=== PATIENT | female | born 2005 | race African-American/Black ===

== ENCOUNTER 2025-07-21 15:22 | Observation (INO) ==
[2025-07-21 16:10] LABS: Hematocrit (blood only) 30.9 % (37.0-47.0); Hemoglobin 9.7 g/dL (12.0-16.0); Immature Granulocytes # (auto) 0.04 K/uL (0.01-0.20); Immature Granulocytes % (auto) 0.4 %; Mean Corpuscular Hemoglobin 22.1 pg (25.0-34.0); Mean Corpuscular Volume 70.5 fL (80.0-100.0); Platelet Count 315 K/uL (130-400); RDW Standard Deviation 50.8 fL (36.4-46.3); Red Blood Count 4.38 M/uL (4.20-5.40); White Blood Count 11.19 K/ul (4.8-10.8)
--- NOTE | 2025-07-21 16:11 | Emergency Department Note ---
Impression & Plan Nausea & vomiting, Abdominal cramping ED Provider Note NAME: CHATA FAGAN AGE: 20 SEX: F : 2005 ARRIVES VIA: Walk-In INFORMANT: Patient, ED PROVIDER(S): Phillip Wheeler DO CHIEF COMPLAINT: Abdominal pain HPI: The patient is a 20-year-old female who presented to the emergency department for an evaluation of abdominal pain nausea vomiting and pelvic cramping. The patient is currently on her menses. She states that she has had similar symptoms in the past with her menses. She has not had it in a long time but over the last 3 days she has been experiencing nausea vomiting and abdominal cramping. The patient denies having any fever. The patient denies having any dysuria. She states that she has been having symptoms over the last 3 days. The patient's been taking [id number] medication with only minimal relief of her symptoms. ROS: See above HPI for pertinent positives & negatives. A total of 10 systems reviewed and were otherwise negative. PAST MEDICAL HISTORY: See Below PAST SURGICAL HISTORY: See Below FAMILY HISTORY: See Below SOCIAL HISTORY: See Below HOME MEDICATIONS: See Below ALLERGIES: See Below VITALS: See Below PHYSICAL EXAMINATION: GENERAL: Patient is awake alert in no acute distress patient is resting comfortably and showing no signs of anxiety EYES: The conjunctivae are clear. The pupils are round and reactive. EARS, NOSE, MOUTH AND THROAT: The nose is without any evidence of any deformity. NECK: The neck is nontender and supple. RESPIRATORY: Normal respiratory effort is noted there is no evidence of wheezing rhonchi or rales CARDIOVASCULAR: Regular rate and rhythm noted there no murmurs rubs or gallops normal S1 normal S2. GASTROINTESTINAL: The abdomen is soft. Abdomen is nontender. MUSCULOSKELETAL/EXTREMITIES: There is no evidence of gross deformity full range of motion is noted in the hips and shoulders. SKIN: There is no obvious evidence of any rash. There are no petechiae, pallor or cyanosis noted. NEUROLOGIC: Patient is awake alert and oriented x3 MEDICAL DECISION MAKING: The patient is a 20-year-old female who presented to the emergency department for an evaluation of abdominal pain. The patient was having abdominal cramping with nausea and vomiting. The patient did not have a physical exam consistent with an acute surgical abdomen. The patient was treated with medication in the emergency department for pain as well as vomiting. The patient was reevaluated multiple times. She was treated with IV fluids. On reevaluation she was resting comfortably. She was encouraged to continue all medications as prescribed. I do not feel the patient requires a CAT scan of the abdomen and pelvis at this time. I did discuss this with the patient. She was advised to continue to follow-up with S for reevaluation but return immediately if she develop any signs of worsening pain or rigid abdomen or fever or if the need arises. After the patient was discharged in discussion with her mother the patient decided that she was not feeling any better and would like to be evaluated by the hospitalist for inpatient management. I discussed her condition with the on-call [facility] hospitalist. Triage Nursing notes reviewed. Prior medical records reviewed Vital Signs: reviewed and remarkable for no significant abnormalities Differential diagnosis: Etiologies such as appendicitis, diverticulitis, obstruction, inflammatory bowel disease, renal colic, PUD, biliary pathology, pancreatitis, mesenteric ischemia, aortic pathology, infections, genitourinary, UTI, perforated viscus, as well as others were entertained. ER treatment provided: See below Diagnostics interpreted by me: ECG: none Cardiac Monitoring: An order was placed for continuous cardiac monitoring. The monitor shows a rate of 62 bpm with sinus rhythm. Laboratory studies: As stated above and show below. Imaging studies: See below. Radiographic imaging was reviewed by myself Consultation(s): I discussed the case with Dr. Leahy who is on-call for the [facility] hospitalist group. Past Med/Surg History Problem List (Updated 07/21/25 @ 19:53 by Phillip Wheeler DO) Abdominal cramping (Acute) Nausea & vomiting (Acute) Otitis externa Surgical History No history of previous surgery Family History Family/Other Asthma cousin Other No family history of adverse response to anesthesia No family history of bleeding disorder Social History Smoking Status: Never smoker Do You Dip or Chew Tobacco: No; Hx Alcohol Use: No Hx Substance Use: No Preferred Language: Cook Islander marital status: Single current occupational status: student current occupation: Undergrad student Feels Safe at Home: Yes Allergies Allergies Allergy/AdvReac Type Severity Reaction Status Date / Time No Known Allergies Allergy Verified 07/21/25 17:10 Home Meds Home Medications Medication Instructions Recorded Confirmed acetaminophen 500 mg tablet 1,000 mg PO DIRECTED PRN 07/21/25 07/21/25 (Tylenol Extra Strength) PAIN/FEVER ibuprofen 200 mg tablet (Advil) 600 mg PO DIRECTED PRN 07/21/25 07/21/25 PAIN/FEVER Results & Data (ED) Vital Signs Vital Signs - 24 hr 07/21/25 15:26 07/21/25 15:48 07/21/25 17:38 Temperature 36.6 C Temperature Source Skin Pulse Rate 59 L 58 L Pulse Rate [Left Finger] 95 H Respiratory Rate 16 16 Respiratory Effort / Characteristics Non-Labored Spontaneous Respiratory Depth Normal Blood Pressure 135/91 Blood Pressure [Right Arm] 125/81 Blood Pressure Mean 105 Blood Pressure Mean [Right Arm] 95 Blood Pressure Position [Right Arm] Lying Pulse Oximetry 100 100 Oxygen Delivery Method Room Air Sepsis Recent Fever Within 48 Hours No Sepsis New/Unexplained Change in Mental Status N/A Sepsis Action Taken by Nursing No Action Required 07/21/25 18:59 07/21/25 19:33 07/21/25 20:37 Temperature Temperature Source Pulse Rate 59 L Pulse Rate [Left Finger] 62 54 L Respiratory Rate 18 18 Respiratory Effort / Characteristics Respiratory Depth Blood Pressure Blood Pressure [Right Arm] 114/70 127/81 Blood Pressure Mean Blood Pressure Mean [Right Arm] 84 96 Blood Pressure Position [Right Arm] Lying Lying Pulse Oximetry 98 97 Oxygen Delivery Method Room Air Room Air Sepsis Recent Fever Within 48 Hours Sepsis New/Unexplained Change in Mental Status Sepsis Action Taken by Fdc Medications Current Medication List: was personally reviewed by me Laboratory Data Attestation: I reviewed the patient's lab results. 07/21/25 15:39 07/21/25 15:39 Lab Results 07/21/25 07/21/25 Range/Units 15:39 19:25 WBC 11.19 H (4.8-10.8) K/ul RBC 4.38 (4.20-5.40) M/uL Hgb 9.7 L (12.0-16.0) g/dL Hct 30.9 L (37.0-47.0) % MCV 70.5 L (80.0-100.0) fL MCH 22.1 L (25.0-34.0) pg MCHC 31.4 L (32.0-36.0) g/dL RDW Std Deviation 50.8 H (36.4-46.3) fL RDW Coeff of Janet 20.3 H (11.5-14.5) % Plt Count 315 (130-400) K/uL MPV 10.9 (9.4-12.4) fL Immature Gran % (Auto) 0.4 % Neut % (Auto) 74.2 % Lymph % (Auto) 18.9 % [place] % (Auto) 6.2 % Eos % (Auto) 0.0 % Baso % (Auto) 0.3 % Neut # (Auto) 8.32 H (1.40-6.50) K/uL Lymph # (Auto) 2.11 (1.20-3.40) K/uL [place] # (Auto) 0.69 H (0.11-0.59) K/uL Eos # (Auto) 0.00 (0.00-0.50) K/uL Baso # (Auto) 0.03 (0.00-0.20) K/uL Immature Gran # (Auto) 0.04 (0.01-0.20) K/uL Polychromasia 1+ Anisocytosis Present Target Cells 1+ Sodium 137 (136-145) mmol/L Potassium 3.1 L (3.5-5.1) mmol/L Chloride 106 (98-107) mmol/L Carbon Dioxide 21 (21-32) mmol/L Anion Gap 10 (3-11) BUN 12 (6-23) mg/dl Creatinine 0.67 (0.6-1.2) mg/dl Est Cr Clr Drug Dosing 103.5 ml/min eGFR 127.45 BUN/Creatinine Ratio 17.9 (10-20) Glucose 103 H (70-99(Fasting)) mg/dl Calcium 10.8 H (8.6-10.3) mg/dl Total Bilirubin 0.5 (0.2-1.0) mg/dl AST 20 (13-39) U/L ALT 7 (7-52) U/L Alkaline Phosphatase 67 (34-104) U/L Total Protein 8.5 H (6.0-8.3) gm/dl Albumin 4.4 (3.4-5.0) gm/dl Globulin 4.1 H (2.5-4.0) gm/dl Albumin/Globulin Ratio 1.1 (0.9-2) Lipase 44 (11-82) U/L HCG, Qual Negative (Negative) Urine Color Yellow Urine Appearance Clear (Clear) Urine pH 6.0 (4.5-7.5) Ur Specific [place] 1.032 H (1.000-1.030) Urine Protein 1+ H (Negative) Urine Glucose (UA) Negative (Negative) Urine Ketones 2+ H (Negative) Urine Blood 2+ H (Negative) Urine Nitrite Negative (Negative) Urine Bilirubin Negative (Negative) Urine Urobilinogen Negative (Negative) Ur Leukocyte Esterase Negative (Negative) Urine WBC (Auto) 0-5 (0-5) /hpf Urine RBC (Auto) >20 H (0-2) /hpf U Hyaline Cast (Auto) 0-2 (0-2) /lpf U Epithel Cells (Auto) 0-2 (0-2) /hpf Urine Bacteria (Auto) 1+ H (None Seen) Urine Comment Administered Medications Discontinued Medications Sodium Chloride (Nss) 1,000 mls @ 999 mls/hr IV .Q1H1M STA Stop: 07/21/25 16:54 Last Infusion: 07/21/25 17:39 Dose: Infused Documented By: Admin: 07/21/25 16:19 Dose: 999 mls/hr Documented By: TYLER Promethazine HCl (Phenergan) 12.5 mg in 50.5 mls @ 202 mls/hr IV NOW STA Stop: 07/21/25 17:30 Last Infusion: 07/21/25 18:38 Dose: Infused Documented By: Admin: 07/21/25 17:28 Dose: 202 mls/hr Documented By: TYLER Ketorolac Tromethamine (Ketorolac Tromethamine 15 Mg/Ml Vial) 10 mg IV NOW STA Stop: 07/21/25 15:55 Last Admin: 07/21/25 16:18 Dose: 10 mg Documented By: TYLER Metoclopramide HCl (Metoclopramide Hcl Inj 5 Mg/Ml 2 Ml Vial) 5 mg IV ONE ONE Stop: 07/21/25 20:52 Last Admin: 07/21/25 20:58 Dose: 5 mg Documented By: BRIGIDA Ondansetron HCl (Ondansetron Inj 2 Mg/Ml 2 Ml Vial) 4 mg IV NOW STA Stop: 07/21/25 15:55 Last Admin: 07/21/25 16:18 Dose: 4 mg Documented By: TYLER Imaging Data Attestation: I personally reviewed and interpreted this imaging study as follows: My Impression: 1 view chest x-ray was obtained in the emergency department. My interpretation is no free air or definite infiltrate, final report below. Radiologist's Impression: Chest X-Ray 07/21/25 15:54 Chest radiograph, one view History: Chest pain Comparison: None Findings: Single AP view of the chest performed. No focal consolidation or pleural effusion. No pneumothorax. The cardiomediastinal silhouette is within normal limits. Normal pulmonary vascularity. No evidence for lymphadenopathy. No visualized bony or soft tissue abnormality. Impression: Normal chest radiograph Electronically signed by Mathieu Sanchez 07-21-2025 4:35 PM KUB X-Ray 07/21/25 15:54 Abdominal radiograph, one view History: Abdominal pain Comparison: Findings: Single AP view of the abdomen performed. The bowel gas pattern appears nonobstructive. Mild colonic stool. No pneumatosis or portal venous gas. No abnormal calcifications project over the abdomen. No acute abnormality of the bony structures. Impression: Nonobstructive bowel gas pattern Electronically signed by Mathieu Sanchez 07-21-2025 4:35 PM Discharge Plan Visit Data Chief Complaint: Dehydration Stated Complaint: HAVEN'T EATEN OR DRANK WATER IN 3 DAYS ED Provider: Phillip Wheeler Discharge Problem: Nausea & vomiting, Abdominal cramping Patient Disposition: Being Evaluated by Hospitalist Condition: Fair Discharge Instructions Marti/Other Patient Handouts: ED Vomiting (Adult) Activity Restrictions/Additional Instructions: Continue to alternate ibuprofen and acetaminophen as directed for pain. Continue to drink plenty of clear liquids including Pedialyte and Gatorade. Follow-up with S tomorrow for reevaluation. Return immediately if symptoms worsen or if the need arises. Forms Stand Alone Forms: Work/School Release (ED), [facility], Important Visit Information Prescriptions Prescriptions: No Action acetaminophen [Tylenol Extra Strength] 500 mg Tablet 1,000 mg PO DIRECTED PRN (Reason: PAIN/FEVER) ibuprofen [Advil] 200 mg Tablet 600 mg PO DIRECTED PRN (Reason: PAIN/FEVER) Referrals Referrals: [facility] [Primary Care Provider] -
[2025-07-21 16:18] LABS: Alanine Aminotransferase 7.0 U/L (7-52); Albumin Globulin Ratio 1.1 (0.9-2); Albumin Level 4.4 gm/dl (3.4-5.0); Alkaline Phosphatase 67.0 U/L (34-104); Anion Gap 10.0 (3-11); Bilirubin,Total 0.5 mg/dl (0.2-1.0); Blood Urea Nitrogen 12.0 mg/dl (6-23); Calcium 10.8 mg/dl (8.6-10.3); Carbon Dioxide 21.0 mmol/L (21-32); Chloride 106.0 mmol/L (98-107); Creatinine Clr Calc Pharmacy 103.5 ml/min; Globulin 4.1 gm/dl (2.5-4.0); Glucose 103.0 mg/dl (70-99(Fasting)); Lipase 44.0 U/L (11-82); Potassium 3.1 mmol/L (3.5-5.1); Sodium 137.0 mmol/L (136-145); Total Protein 8.5 gm/dl (6.0-8.3)
[2025-07-21] MEDS: ONDANSETRON INJ 2 MG/ML 2 ML VIAL IV STA (16:18)
[2025-07-21] MEDS: KETOROLAC TROMETHAMINE 15 MG/ML VIAL IV STA (16:18)
[2025-07-21] MEDS: SODIUM CHLORIDE 0.9% 1,000 ML IV STA (16:19)
--- NOTE | 2025-07-21 16:36 | XRay Report ---
Abdominal radiograph, one view History: Abdominal pain Comparison: Findings: Single AP view of the abdomen performed. The bowel gas pattern appears nonobstructive. Mild colonic stool. No pneumatosis or portal venous gas. No abnormal calcifications project over the abdomen. No acute abnormality of the bony structures. Impression: Nonobstructive bowel gas pattern Electronically signed by Mathieu Sanchez 07-21-2025 4:35 PM
--- NOTE | 2025-07-21 16:36 | XRay Report ---
Chest radiograph, one view History: Chest pain Comparison: None Findings: Single AP view of the chest performed. No focal consolidation or pleural effusion. No pneumothorax. The cardiomediastinal silhouette is within normal limits. Normal pulmonary vascularity. No evidence for lymphadenopathy. No visualized bony or soft tissue abnormality. Impression: Normal chest radiograph Electronically signed by Mathieu Sanchez 07-21-2025 4:35 PM
[2025-07-21 16:42] LABS: Anisocytosis Present; Polychromasia 1+; Target Cells 1+
[2025-07-21 16:49] LABS: Pregnancy Test, Serum Negative (Negative)
[2025-07-21] MEDS: PROMETHAZINE 12.5 MG/50.5 ML BAG IV STA (17:28)
[2025-07-21 19:56] LABS: Appearance Urine Clear (Clear); Bacteria Urine Automated 1+ (None Seen); Cast Urine Automated 0-2 /lpf (0-2); Epithelial Cell Urine Auto 0-2 /hpf (0-2); Glucose Urine UA Negative (Negative); RBC Urine Automated >20 /hpf (0-2); WBC Urine Automated 0-5 /hpf (0-5)
[2025-07-21] MEDS: METOCLOPRAMIDE HCL INJ 5 MG/ML 2 ML VIAL IV ONE (20:58)
--- NOTE | 2025-07-21 21:49 | History & Physical Report ---
Date of Service July 21, 2025 Assessment & Plan (1) Abdominal cramping: (2) Nausea & vomiting: Plan 20 yo female without significant past medical history admitted for abdominal pain, nausea and vomiting for 3-4 days. #Intractable Abdominal Pain/Cramping // Nausea/Vomiting CTAP ordered to r/o acute pathology Certainly could be related to menses, cannot rule out component of gastroenteritis especially given mild leukocytosis Given marijuana positive status - cannabis hyperemesis is also high on differential Continue ongoing nausea/vomiting control with Zofran, can use Compazine or Reglan as well Pain control with Tylenol, Toradol, topical capsaicin Avoid opiates given constipation Transition to oral medications as soon as able to tolerate #Hypokalemia Trend BMP, replete as indicated FENGI: regular diet, LR w/40mEq K+ @125cc/hr Code status: full code DVT prophylaxis: low risk, encourage ambulation Disposition: med/surg, anticipate discharge in 1-2 days pending clinical course History of Present Illness Chief Complaint: Attending addendum: I have physically seen this patient, have supervised the medical residents activities, and agree with the H&P unless as otherwise noted. Assessment and Plan: The patient is a 20-year-old female with no significant past medical history, presenting to the emergency department with 3 to 4 days of generalized abdominal pain, nausea and vomiting. Intractable abdominal pain/nausea/vomiting/cramping- Chest x-ray negative, KUB negative Differential including but not limited to cannabinol hyperemesis, menses, gastroenteritis, others. Zofran 4 mg IV every 6 hours as needed Compazine 10 mg every 6 hours as needed Acetaminophen 1 g IV every 8 hours as needed for mild pain or fever Toradol 15 mg IV every 6 hours as needed for moderate pain Topical capsaicin Avoiding opiates as noted IV fluids as noted Hypokalemia- Potassium 3.1 repleted with IV fluids Magnesium levels ordered LR with KCl 40 mEq at 125 mL/h x 1 liter Repeat laboratories in a.m. Primary Care Provider: [facility] 20 yo female without significant past medical history admitted for abdominal pain, nausea and vomiting for 3-4 days. States that it started when her menses started. Has been unable to eat/drink for the last 3 days. Denies recent illness. States that she has also not had a bowel movement in 3 days. Endorses concomitant headache. Otherwise denies chest pain, SOB. Denies EtOH or other substance use. She does state that she has had similar symptoms in the past associated with her menses. ED Course: Rec'd 1L NSS Recieved Toradol, Zofran, Compazine, Reglan Labs reveal: mild leukocytosis, anemia, hypokalemia, tox screen + for THC Pt was to be discharged from the ER but stated that she was unable to leave as her symptoms were too severe despite treatments rec'd in ED Allergies Allergy/AdvReac Type Severity Reaction Status Date / Time No Known Allergies Allergy Verified 07/21/25 17:10 Home Medications Medication Instructions Recorded Confirmed Type acetaminophen 500 mg tablet 1,000 mg PO DIRECTED PRN 07/21/25 07/21/25 History (Tylenol Extra Strength) PAIN/FEVER ibuprofen 200 mg tablet (Advil) 600 mg PO DIRECTED PRN 07/21/25 07/21/25 History PAIN/FEVER ondansetron HCl 4 mg tablet 4 mg PO TID PRN nausea and 07/22/25 Rx vomiting 3 days #10 tabs Past Med/Surg History Problem List (Updated 07/21/25 @ 19:53 by Phillip Wheeler DO) Abdominal cramping (Acute) Nausea & vomiting (Acute) Otitis externa Surgical History No history of previous surgery Family History Family/Other Asthma cousin Other No family history of adverse response to anesthesia No family history of bleeding disorder Social History Smoking Status: Never smoker Second Hand Exposure: No; Do You Dip or Chew Tobacco: No; Tobacco Cessation Education Requested by Patient: No Hx Alcohol Use: Yes Alcohol type: hard liquor Hx Substance Use: No (pt denies use) Preferred Language: [place]an Communication Ability: Effective Hand Or Machine Paster Required: No Beliefs That Will Affect Care: None marital status: Single Current Living Situation: Alone current occupational status: student current occupation: Undergrad student Other Information That Helps Us Care for You: No Feels Safe at Home: Yes Safety Concerns: Feels Safe At This Time Assistive Devices: None Review of Systems Review of Systems: reviewed, per HPI Physical Exam Physical Exam: Constitutional: curled in bed, not particularly interactive HEENT: NCAT, no conjunctival injection CV: regular rhythm, no murmur appreciated, extremities well-perfused, no LE edema Resp: CTABL, no wheezes/rales/rhonchi appreciated, no increased work of breathing GI: soft, nondistended, globally tender per pt without rebound or guarding MSK: no gross deformities appreciated Skin: warm, dry, no rash appreciated Neuro: alert, oriented, no focal neurologic deficit appreciated Results & Data Results & Data Vital Signs (Past 12 Hours) Vital Signs Temp Pulse Pulse Resp BP BP Pulse Ox 07/21/25 21:35 64 07/21/25 20:37 54 L 18 127/81 97 07/21/25 19:33 59 L 07/21/25 18:59 62 18 114/70 98 07/21/25 17:38 95 H 16 125/81 100 07/21/25 15:48 58 L 07/21/25 15:26 36.6 C 59 L 16 135/91 100 O2 Del Method 07/21/25 21:35 Room Air 07/21/25 20:37 Room Air 07/21/25 19:33 07/21/25 18:59 Room Air 07/21/25 17:38 Room Air 07/21/25 15:48 07/21/25 15:26 Resident Activity Tracking Resident Involvement: Resident Care Provided Care Provided: Adult Hospital Medicine
[2025-07-21] MEDS: ONDANSETRON HOME PACK 4MG OD TAB PO ONE (22:01)
[2025-07-21] MEDS: ACETAMINOPHEN 1,000 MG/100 ML VIAL IV STA (22:05)
[2025-07-21 22:10] LABS: Amphetamines+Metham, Urine Neg (Neg); MDMA (Ecstacy), Urine Neg (Neg); Marijuana, Urine Pos (Neg)
[2025-07-21] MEDS ORDERED: ALUMINUM/MAGNESIUM SUSP 30 ML UDC PO PRN (22:45)
[2025-07-21] MEDS ORDERED: ACETAMINOPHEN 500 MG TAB PO PRN (22:45)
[2025-07-21] MEDS ORDERED: POLYETHYLENE (MIRALAX) 17 GM PACK PO PRN (22:45)
[2025-07-21] MEDS ORDERED: MAGNESIUM HYDROXIDE SUSP 30 ML UDC PO PRN (22:45)
--- NOTE | 2025-07-21 22:53 | CT Scan Report ---
Exam(s): CT ABDOMEN + PELVIS Without Contrast EXAM: CT Abdomen and Pelvis Without Intravenous Contrast CLINICAL HISTORY: Reason for exam: abdominal pain. TECHNIQUE: Axial computed tomography images of the abdomen and pelvis without intravenous contrast. CTDI is 8.07 mGy and DLP is 357.4 mGy-cm. Automated exposure control was utilized for the study. A dose lowering technique was utilized adhering to the principles of ALARA. COMPARISON: No relevant prior studies available. FINDINGS: Lung bases: Unremarkable. No mass. No consolidation. ABDOMEN: Liver: Unremarkable. Gallbladder and bile ducts: Unremarkable. No calcified stones. No ductal dilation. Pancreas: Unremarkable. No ductal dilation. Spleen: Unremarkable. No splenomegaly. Adrenals: Unremarkable. No mass. Kidneys and ureters: Unremarkable. No obstructing stones. No hydronephrosis. Stomach and bowel: Unremarkable. No obstruction. No mucosal thickening. PELVIS: Appendix: No findings to suggest acute appendicitis. Bladder: Unremarkable. No stones. Reproductive: Unremarkable as visualized. ABDOMEN and PELVIS: Intraperitoneal space: Unremarkable. No free air. No significant fluid collection. Bones/joints: No acute fracture. No dislocation. Soft tissues: Unremarkable. Vasculature: Unremarkable. No abdominal aortic aneurysm. Lymph nodes: Unremarkable. No enlarged lymph nodes. IMPRESSION: Normal abdomen and pelvis CT. Electronically signed by: Jeremiah Jensen MD 07/21/25 22:52 PM
[2025-07-21] MEDS: MELATONIN 3 MG TAB PO PRN (23:09)
[2025-07-21] MEDS: KETOROLAC TROMETHAMINE 15 MG/ML VIAL IV PRN (23:14)
[2025-07-21] MEDS: POTASSIUM CHLORIDE 40 MEQ in LACTATED RINGER'S 1,000 ML IV SCH (23:15)
[2025-07-22] MEDS: CAPSAICIN CR 0.075% 60 GM TUBE EXT SCH (00:18)
[2025-07-22 02:21] VITALS: O2SAT 100
[2025-07-22 08:04] VITALS: BP 129/72; PULSE 92; RESP 20; TEMP 98.6
[2025-07-22 08:09] LABS: Hematocrit (blood only) 26.3 % (37.0-47.0); Hemoglobin 8.2 g/dL (12.0-16.0); Immature Granulocytes # (auto) 0.04 K/uL (0.01-0.20); Immature Granulocytes % (auto) 0.5 %; Mean Corpuscular Hemoglobin 22.4 pg (25.0-34.0); Mean Corpuscular Volume 71.9 fL (80.0-100.0); Platelet Count 254 K/uL (130-400); RDW Standard Deviation 51.9 fL (36.4-46.3); Red Blood Count 3.66 M/uL (4.20-5.40); White Blood Count 8.54 K/ul (4.8-10.8)
[2025-07-22 08:33] LABS: Anisocytosis Present
[2025-07-22 08:37] LABS: Anion Gap 6.0 (3-11); Blood Urea Nitrogen 12.0 mg/dl (6-23); Calcium 9.7 mg/dl (8.6-10.3); Carbon Dioxide 22.0 mmol/L (21-32); Chloride 111.0 mmol/L (98-107); Creatinine Clr Calc Pharmacy 117.8 ml/min; Glucose 93.0 mg/dl (70-99(Fasting)); Magnesium 2.0 mg/dl (1.7-2.4); Potassium 4.0 mmol/L (3.5-5.1); Sodium 139.0 mmol/L (136-145)
--- NOTE | 2025-07-22 11:05 | Discharge Summary ---
Date of Service July 22, 2025 Admission HPI Per Admitting Provider 20 yo female without significant past medical history admitted for abdominal pain, nausea and vomiting for 3-4 days. States that it started when her menses started. Has been unable to eat/drink for the last 3 days. Denies recent illness. States that she has also not had a bowel movement in 3 days. Endorses concomitant headache. Otherwise denies chest pain, SOB. Denies EtOH or other substance use. She does state that she has had similar symptoms in the past associated with her menses. ED Course: Rec'd 1L NSS Recieved Toradol, Zofran, Compazine, Reglan Labs reveal: mild leukocytosis, anemia, hypokalemia, tox screen + for THC Pt was to be discharged from the ER but stated that she was unable to leave as her symptoms were too severe despite treatments rec'd in ED Admission Exam Per Admitting Provider Constitutional: curled in bed, not particularly interactive HEENT: NCAT, no conjunctival injection CV: regular rhythm, no murmur appreciated, extremities well-perfused, no LE edema Resp: CTABL, no wheezes/rales/rhonchi appreciated, no increased work of breathing GI: soft, nondistended, globally tender per pt without rebound or guarding MSK: no gross deformities appreciated Skin: warm, dry, no rash appreciated Neuro: alert, oriented, no focal neurologic deficit appreciated Principal Diagnosis 1. Intractable abdominal pain/nausea/vomiting 2. Hypokalemia Discharge Exam Constitutional: curled in bed, not particularly interactive HEENT: NCAT, no conjunctival injection CV: regular rhythm, no murmur appreciated, extremities well-perfused, no LE edema Resp: CTABL, no wheezes/rales/rhonchi appreciated, no increased work of terrie thing GI: soft, nondistended, diffuse tenderness + MSK: no gross deformities appreciated Skin: warm, dry, no rash appreciated Neuro: alert, oriented, no focal neurologic deficit appreciated Discharge Data Allergies Allergy/AdvReac Type Severity Reaction Status Date / Time No Known Allergies Allergy Verified 07/21/25 17:10 Consultations 07/21/25 21:05 ED Decision to Admit Stat Ordered Studies 07/21/25 21:42 CT Abd and Pelvis [CT abd pelvis wo con] Stat Hospital Course (1) Abdominal cramping: (2) Nausea & vomiting: Plan 20 yo female without significant past medical history admitted for abdominal pain, nausea and vomiting for 3-4 days. #Intractable Abdominal Pain/Cramping // Nausea/Vomiting CTAP ordered to r/o acute pathology Certainly could be related to menses, cannot rule out component of gastroenteritis especially given mild leukocytosis Given marijuana positive status - cannabis hyperemesis is also high on differential Symptoms well controlled this morning. No nausea/vomiting Pain control with Tylenol, and Advil at home #Hypokalemia(Resolved) -Potassium 4 this morning Total Time Total Time Spent Total Time Spent (In Minutes): <30 Discharge Plan Discharge Items Patient Disposition: Home - Self-Care Reason For Visit: ABDOMINAL PAIN, N/V Discharge Diagnosis: Vomiting likely 2/2 to Cannabis use Condition on Discharge: Fair Activity: Resume your previous activity Non-emergency contact: Primary Care Provider Call non-emergency contact if: you have any medication questions Follow-up/Referrals: [facility] [Primary Care Provider] - (PLEASE FOLLOW UP WITH [facility] IN 7-10 DAYS.) Diet: Regular Addtl Attending Provider Instructions: You came in hospital with nausea, vomiting and abdominal cramping. Your vomiting might be secondary to marijuana consumption. You were treated with IV medication for vomiting . Today, you symptoms are improved and ready to get discharged. Medication: Take Zofran as needed 3 times a day(8 hrs apart) for vomiting. Take Tylenol/Advil as needed for abdominal cramping. Take Miralax as needed for constipation. Miralax is available OTC. Take OTC iron supplement daily for your low hemoglobin. Followup Please followup with your primary care provider within next week from hospital discharge. will need to recheck your hgb in 2 weeks. If you have any issues filling these prescriptions, please call [phone] and ask to leave a message for Dr Gwendolyn Bustos. Pending Studies at Discharge: No Stand-Alone Forms: My [facility] D4P, Smoking Cessation Medications and DC Order Prescriptions: New ondansetron HCl 4 mg tablet 4 mg PO TID PRN (Reason: nausea and vomiting) 3 Days Qty: 10 0RF Continued acetaminophen [Tylenol Extra Strength] 500 mg Tablet 1,000 mg PO DIRECTED PRN (Reason: PAIN/FEVER) ibuprofen [Advil] 200 mg Tablet 600 mg PO DIRECTED PRN (Reason: PAIN/FEVER) Discharge Orders: Discharge Order (Routine); Ordered 07/22/25 Ordered By: Gwendolyn Bustos Admission Data Admit Date/Time: 07/21/25 21:46 Attending Provider: Jeremiah Mary Admit Provider: Wilfred Patel Primary Care Provider: [facility] Other Providers: Rhys Borjas Other Interventions: Discharge Summary Assessment (RN) Last Done: 07/22/25 14:51 Supervising Physician Co-Signing Physician Notes I personally examined the patient and verified all rasheed points of history and exam, discussed case, and agree with decision making with Dr Bustos Feeling better. Still nauseated but was able to eat breakfast. Feels like she will be able to do okay at home. Notes that this is not unusual for her around the time of her mensesjust worse recently than it had been in a while. Vitals noted, in general she is awake and alert pleasant no distress. HEENT normocephalic atraumatic mucous membranes moist. Breathing unlabored no accessory muscle use good effort. Skin without rashes pallor or icterus. Neuro without focal deficits. Intractable nausea and vomitingshe notes that is perimenstrual, improving, and she believes she will be fine at home/would like to go home. Discussed potential management with methods such as OCPs, discussed outpatient follow-up locally or with her PCP back home. She will consider. Zofran as needed nausea microcytic anemiaalmost certainly iron deficient. P.o. iron. Repeat CBC as outpatient in a few weeks. Resident Activity Tracking Resident Involvement: Resident Care Provided Care Provided: Adult Hospital Medicine
[2025-07-22] MEDS: ONDANSETRON INJ 2 MG/ML 2 ML VIAL IV PRN (13:20)
--- NOTE | 2025-07-22 20:10 | Billing Data ---
Date of Service July 22, 2025 Coding Level of Care Code 17377 IN/OBS DISCH 30 MIN/LESS
--- NOTE | 2025-07-22 21:36 | Billing Data ---
Date of Service July 22, 2025 Coding Level of Care Code 98791 INT INP/OBS CARE
[2025-07-23 07:16] LABS: Hypochromasia Present; Microcytosis Present
--- NOTE | 2025-07-23 13:25 | Coding Query ---
CODING QUERY To promote full compliance with coding requirements relating to patient care, provider participation is requested in all cases of siebel solution architect uncertainty. Please assist us with the question(s) below: Coding Question(s): There is documentation, as on the Discharge Summary of " Given marijuana positive status - cannabis hyperemesis is also high on differential", and, "Discharge Diagnosis: Vomiting likely 2/2 to Cannabis use", and, " Addtl Attending Provider Instructions: You came in hospital with nausea, vomiting and abdominal cramping. Your vomiting might be secondary to marijuana consumption. You were treated with IV medication for vomiting . Today, you symptoms are improved and ready to get discharged.". Please specify below, in your clinical opinion, regarding possible cannabis hyperemesis, vomiting likely 2/2 Cannibis Use, vomiting might be secondary to marijuana consumption: ( ) Cannabis Hyperemesis Syndrome ( ) Cannabis Poisoning (x ) Other: Please Specify not cannabis hyperemesis, nausea and vomiting related to menses Physician's Response(s): Thank you Lenka Callahan Principal Diagnosis: "that condition established after study, to be chiefly responsible for occasioning the admission of the patient to the hospital for care." Co-Existing Principal Diagnosis: "when two or more diagnoses equally meet the criteria for principal diagnosis as determined by the circumstances of admission, diagnostic work up, and/or therapy provided, and the Alphabetic Index, Tabular List, or another coding guideline does not provide sequencing direction, any one of the diagnoses may be sequenced first." "When the physician has documented what appears to be a current diagnosis in the body of the record, but has not included the diagnosis in the final diagnostic statement, the physician should be asked whether the diagnosis should be added." (Source Coding Clinic 2 QTR90. p3-4) PIPO
[2025-07-26 10:21] LABS: Marijuana Quant, GCMS Urine 561 ng/mL (<5)
== END 2025-07-22 15:13 | disposition home or self-care (01) | DRG 761 ==
LOC: ED 15:22 → SUATTDRO 21:46 → INTOOBSV 21:46 → 3N 21:46